=== PATIENT | male | born 1990 | race Caucasian/White ===

== ENCOUNTER 2017-09-22 02:15 | Emergency (ER) | payer SELFPAY ==
[2017-09-22 02:19] VITALS: BP 134/68; PULSE 77; RESP 18; TEMP 98.6; O2SAT 97
[2017-09-22] MEDS ORDERED: SODIUM CHLOR 0.9% 1000 ML INJ 1,000 ML IV SCH (02:27)
--- NOTE | 2017-09-22 02:29 | PD ---
HPI Chief Complaint: Abdominal Pain Time Seen by Provider: 02:23 Travel History International Travel<30 days: No Contact w/Intl Traveler<30days: No Traveled to known affect area: No History of Present Illness HPI Patient comes in complaining of left flank pain radiates towards left lower quadrant area. Describes the pain as sharp, 8 out of 10, woke him up from sleep , not affiliated with any nausea vomiting or diarrhea, states that he is urine has changed and gotten darker and decreased in amount. Patient denies any alleviating or aggravating factors. Patient denies any associated factors such as fever, rash, headache, neck pain, back pain, chest pain, cough/runny nose/ sore throat/..... Patient states that he has allergy to cefaclor, he develops hives Patient denies any past medical history except for depression for which she is on Zoloft and Abilify Patient denies any significant surgical history PFSH Past Medical History ADHD: Yes Diminished Hearing: No Immunizations Current: Yes Past Surgical History Surgical History: No Previous Surgery Social History Alcohol Use: No Tobacco Use: Yes Substance Use: Yes (WEED) Allergies-Medications (Allergen,Severity, Reaction): Coded Allergies: cefaclor (Verified Allergy, Severe, 09/22/17) Reported Meds & Prescriptions Reported Meds & Active Scripts Active Reported Zoloft (Sertraline HCl) 25 Mg Tab 25 Mg PO DAILY Abilify (Aripiprazole) 2 Mg Tab 2 Mg PO DAILY Physical Exam Narrative GENERAL: SKIN: Warm and dry. HEAD: Atraumatic. Normocephalic. EYES: Pupils equal and round. No scleral icterus. No injection or drainage. ENT: No nasal bleeding or discharge. Mucous membranes pink and moist. NECK: Trachea midline. No JVD. CARDIOVASCULAR: Regular rate and rhythm. RESPIRATORY: No accessory muscle use. Clear to auscultation. Breath sounds equal bilaterally. GASTROINTESTINAL: Abdomen soft, non-tender, nondistended. MUSCULOSKELETAL: Extremities without clubbing, cyanosis, or edema. No obvious deformities. NEUROLOGICAL: Awake and alert. No obvious cranial nerve deficits. Motor grossly within normal limits. Five out of 5 muscle strength in the arms and legs. Normal speech. PSYCHIATRIC: Appropriate mood and affect; insight and judgment normal. Data Data Last Documented VS Orders Orders Complete Blood Count With Diff (09/22/17 02:27) Comprehensive Metabolic Panel (09/22/17 02:27) Lipase (09/22/17 02:27) Ct Abd/Pel W/O Iv Contrast (09/22/17 02:27) Iv Access Insert/Monitor (09/22/17 02:27) Ecg Monitoring (09/22/17 02:27) Oximetry (09/22/17 02:27) NPO (09/22/17 02:27) Sodium Chlor 0.9% 1000 Ml Inj (Ns 1000 M (09/22/17 02:27) Sodium Chloride 0.9% Flush (Ns Flush) (09/22/17 02:30) Ketorolac Inj (Toradol Inj) (09/22/17 02:30) Thyroid Stimulating Hormone (09/22/17 02:47) Psych Screen (09/22/17 02:47) Alcohol (Ethanol) (09/22/17 02:47) Salicylates (Aspirin) (09/22/17 02:47) Tylenol (Acetaminophen) (09/22/17 02:47) Ed Discharge Order (09/22/17 10:29) Labs Laboratory Tests Test 09/22/17 02:35 White Blood Count 9.7 TH/MM3 Red Blood Count 4.40 MIL/MM3 Hemoglobin 13.6 GM/DL Hematocrit 39.3 % Mean Corpuscular Volume 89.2 FL Mean Corpuscular Hemoglobin 30.9 PG Mean Corpuscular Hemoglobin Concent 34.6 % Red Cell Distribution Width 13.5 % Platelet Count 280 TH/MM3 Mean Platelet Volume 8.6 FL Neutrophils (%) (Auto) 62.5 % Lymphocytes (%) (Auto) 24.8 % Monocytes (%) (Auto) 8.1 % Eosinophils (%) (Auto) 3.8 % Basophils (%) (Auto) 0.8 % Neutrophils # (Auto) 6.1 TH/MM3 Lymphocytes # (Auto) 2.4 TH/MM3 Monocytes # (Auto) 0.8 TH/MM3 Eosinophils # (Auto) 0.4 TH/MM3 Basophils # (Auto) 0.1 TH/MM3 CBC Comment DIFF FINAL Differential Comment Blood Urea Nitrogen 16 MG/DL Creatinine 0.85 MG/DL Random Glucose 87 MG/DL Total Protein 7.3 GM/DL Albumin 4.0 GM/DL Calcium Level 8.2 MG/DL Alkaline Phosphatase 65 U/L Aspartate Amino Transf (AST/SGOT) 15 U/L Alanine Aminotransferase (ALT/SGPT) 25 U/L Total Bilirubin 0.6 MG/DL Sodium Level 143 MEQ/L Potassium Level 4.2 MEQ/L Chloride Level 108 MEQ/L Carbon Dioxide Level 25.7 MEQ/L Anion Gap 9 MEQ/L Estimat Glomerular Filtration Rate 107 ML/MIN Lipase 221 U/L Thyroid Stimulating Hormone 3rd Gen 2.000 uIU/ML Salicylates Level 1.8 MG/DL Acetaminophen Level LESS THAN 2.0 MCG/ML Ethyl Alcohol Level 6 MG/DL MDM Medical Decision Making Medical Screen Exam Complete: Yes Emergency Medical Condition: Yes Medical Record Reviewed: Yes Differential Diagnosis Colitis versus diverticulitis versus kidney stone versus UTI versus pyelonephritis Narrative Course CBC shows no leukocytosis, no anemia, normal platelet count, no left shift CT abdomen and pelvis read by radiologist as no acute abnormality although it was not mentioned originally when I went back to discuss findings and results patient stated that he has been feeling more depressed lately despite the fact that he is already on antidepressants. Is being worse since his partner left, he has been living in a motel the ED and has been more and more depressed although currently he does not have any suicidal or homicidal ideation. The patient did request to see a psychiatrist. Patient has been medically cleared and will be placed on the waiting list to see a psychiatrist as a voluntary Diagnosis Primary Impression: Resolved left flank pain Additional Impression: medically cleared Ty Lopez MD September 22, 2017 02:29
[2017-09-22] MEDS ORDERED: KETOROLAC TROMETHAMINE 30 MG/ML (IVP) VIAL IVP ONE (02:30)
[2017-09-22] MEDS ORDERED: SODIUM CHLORIDE 0.9% FLUSH 10 ML FLUSH IV FLUSH PRN (02:30)
[2017-09-22 02:34] VITALS: BP 136/61; PULSE 60; RESP 16; O2SAT 97
[2017-09-22] MEDS ORDERED: ARIP2 PO (02:37)
[2017-09-22] MEDS ORDERED: ZOLO25TA PO (02:39)
--- NOTE | 2017-09-22 02:49 | RADRPT ---
EXAM DATE: 09/22/2017 2:44 AM EDT AGE/SEX: 27 years / Male INDICATIONS: Left flank pain. CLINICAL DATA: This is the patient's initial encounter. Patient reports that signs and symptoms have been present for 1 day and indicates a pain score of 7/10. MEDICAL/SURGICAL HISTORY: None. None. RADIATION DOSE: 8.36 CTDI (mGy) COMPARISON: No prior [facility] exams available for comparison. TECHNIQUE: Multiple contiguous axial images were obtained through the abdomen. Images were obtained using multiple row detector helical technique. Using dose reduction techniques, radiation dose was ke pt as low as reasonably achievable to obtain optimal diagnostic quality images. FINDINGS: Lower Lungs: The visualized lower lungs are clear. Liver: The liver has a homogeneous density without space-occupying lesion. There is no dilation of th e biliary tree. Spleen: Homogeneous density without enlargement. Pancreas: Unremarkable without mass or calcification. Kidneys: Normal in size and shape. No evidence of mass or hydronephrosis. Adrenal Glands: Unremarkable. Aorta: The aorta and proximal iliac vessels are grossly unremarkable without aneurysmal dilation. Bowel/Mesentery: The bowel loops are grossly unremarkable. The cecum and sigmoid colon have a normal configuration. Normal appendix. Abdominal Wall: Intact. Retroperitoneum: No evidence of adenopathy in the retrocrural, para-aortic, or deep pelvic regions. Bladder: Contours are smooth. Reproductive Organs: No abnormal masses or calcifications seen. Inguinal: The inguinal region is unremarkable without evidence of adenopathy. Bony Structures: Unremarkable. CONCLUSION: No acute abnormality. Electronically signed by: Euegne Roper MD 09/22/2017 2:48 AM EDT
[2017-09-22 02:56] LABS: AUTOMATED NEUTROPHIL # 6.1 TH/MM3 (1.8-7.7); BASOPHIL # 0.1 TH/MM3 (0-0.2); BASOPHIL % 0.8 % (0.0-2.0); EOSINOPHIL # 0.4 TH/MM3 (0-0.4); EOSINOPHIL % 3.8 % (0.0-4.0); HEMATOCRIT 39.3 % (39.0-51.0); HEMOGLOBIN 13.6 GM/DL (13.0-17.0); LYMPH % 24.8 % (9.0-44.0); LYMPHOCYTE # 2.4 TH/MM3 (1.0-4.8); MEAN CELL VOLUME 89.2 FL (80.0-100.0); MEAN CORPUSCULAR HEMOGLOBIN 30.9 PG (27.0-34.0); MEAN CORPUSCULAR HGB CONC 34.6 % (32.0-36.0); MEAN PLATELET VOLUME 8.6 FL (7.0-11.0); MONO % 8.1 % (0.0-8.0); MONOCYTE # 0.8 TH/MM3 (0-0.9); NEUT % 62.5 % (16.0-70.0); PLATELET COUNT 280 TH/MM3 (150-450); RED CELL DISTRIBUTION WIDTH 13.5 % (11.6-17.2); WHITE BLOOD COUNT 9.7 TH/MM3 (4.0-11.0)
[2017-09-22 02:59] VITALS: RESP 16; O2SAT 97
[2017-09-22 03:17] LABS: AST (GOT) 15 U/L (15-37); BICARBONATE 25.7 MEQ/L (21.0-32.0); BLOOD UREA NITROGEN 16 MG/DL (7-18); CALCIUM 8.2 MG/DL (8.5-10.1); CHLORIDE 108 MEQ/L (98-107); CREATININE 0.85 MG/DL (0.60-1.30); GLOMERULAR FILTRATION RATE 107 ML/MIN (>89); GLUCOSE,RANDOM 87 MG/DL (74-106); SODIUM (NA) 143 MEQ/L (136-145)
[2017-09-22 03:19] LABS: ALKALINE PHOSPHATASE 65 U/L (45-117); ALT (GPT) 25 U/L (12-78); TOTAL BILIRUBIN ADULT 0.6 MG/DL (0.2-1.0); TOTAL PROTEIN 7.3 GM/DL (6.4-8.2)
[2017-09-22 03:56] LABS: ACETAMINOPHEN LESS THAN 2.0 MCG/ML (10.0-30.0)
--- NOTE | 2017-09-22 09:24 | PD ---
History of Present Illness Chief Complaint: Abdominal Pain Time Seen by Provider: 09:10 Travel History International Travel<30 Days: No Contact w/Intl Traveler<30days: No Known affected area: No Legal Status Legal Status: Voluntary History of Present Illness: History of Present Illness HPI Patient is a 27-year-old , single male, moved to [place] 2 weeks ago, homeless, unemployed, with reported history of ADHD, who initially arrives to the ED complaining of left flank pain. After patient was evaluated and clear of medical complaints he requested to speak to psychiatry. Patient was monitored in Main ED and asked per nurse's report presented no behavioral concerns. EMR is reviewed. No previous contact with [facility]. Toxicology report is pending. Patient is seen. He is found asleep but awakens easily. He is alert and oriented, calm and cooperative. Patient states that he came to [place] 2 weeks ago to help a female friend who was in a domestic violence relationship. Since then she was evicted and moved into a domestic violence jail in [place] and he became homeless. Earlier in the evening he reports that he began to experience flank pain and came to the Ed for evaluation. He states" I was exhausted from walking all day long and I think from the way I was carrying my bag I was having pain. I also think I was dehydrated." The patient presents no indication that he is experiencing any psychosis, no evidence of manfred. There is no objective clinical signs of depression. The patient does not verbalize any suicidal or homicidal ideation, intent or plan. He is future oriented and has plans on moving to [place] with a friend. In terms of psychiatric history he states he was diagnosed with ADHD and has taken Ritalin in the past. He was evaluated last week at [facility] after he superficially scratched his left wrist, he called his mother in [place] and she recommended he call 911. He was given a prescription for Zoloft and Abilify but never filled such prescription. He has no previous psychiatric hospitalization. No previous history of self-injurious behavior. No history of suicide attempts. . PFSH Past Medical History ADHD: Yes Diminished Hearing: No Immunizations Current: Yes Past Surgical History Surgical History: No Previous Surgery Psychiatric History Psychiatric History Hx Psychiatric Treatment: Diagnosed with ADHD. No history of suicide attempt. No history of self-injurious behavior except for one incident last week. Was evaluated at [facility] and discharged with prescriptions for Zoloft and Abilify which he never filled. History of Inpatient Treatment: No Guns or firearms in home: No Social History Born and raised in [place]. Never . Has 2 children ages 9 years and 7 years. 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 Came to [place] to help a friend. He is currently homeless. Hx Alcohol Use: Yes Hx Tobacco Use: Yes Hx Substance Use: Yes (WEED) Substance Use Type: Alcohol, Marijuana Hx of Substance Use Treatment: No Family Psychiatric History Negative Allergies-Medications (Allergen,Severity, Reaction): Coded Allergies: cefaclor (Verified Allergy, Severe, 09/22/17) Reported Meds & Prescriptions Reported Meds & Active Scripts Active Reported Zoloft (Sertraline HCl) 25 Mg Tab 25 Mg PO DAILY Abilify (Aripiprazole) 2 Mg Tab 2 Mg PO DAILY Review of Systems Psychiatric: DENIES: Anxiety, Confusion, Mood changes, Depression, Hallucinations, Agitation, Suicidal Ideation, Homicidal Ideation, Delusions Except as stated in HPI: all other systems reviewed are Neg Mental Status Examination Appearance: Disheveled Consciousness: Alert Orientation: x4 Motor Activity: Normal gait Speech: Unremarkable Language: Adequate Fund of Knowledge: Adequate Attention and Concentration: Adequate Memory: Unremarkable Mood: Appropriate Affect: Appropriate Thought Process & Associations: Intact, Logical, Goal directed Thought Content: Appropriate Hallucination Type: None Delusion Type: None Suicidal Ideation: No Suicidal Plan: No Suicidal Intention: No Homicidal Ideation: No Homicidal Plan: No Homicidal Intention: No Insight: Fair Judgment: Adequate [facility] Medical Decision Making Medical Record Reviewed: Yes Assessment/Plan Patient is a 27-year-old , single male, moved to [place] 2 weeks ago, homeless, unemployed, with reported history of ADHD, who initially arrives to the ED complaining of left flank pain. After patient was evaluated and clear of medical complaints he requested to speak to psychiatry. Patient was monitored in Main ED and asked per nurse's report presented no behavioral concerns. The patient presents with no psychosis, no manfred, no hypomania. No suicidal or homicidal ideation, intent or plan. No significant clinical symptoms of depression or anxiety are noted. He denies that he has a diagnosis of depression and that he has never taken the medication that were prescribed to him last week at [facility]. The patient basically came into the hospital because he had been walking around all day and felt he was dehydrated and he was tired. The patient does not present evidence of unstable mental illness. No criteria for inpatient psychiatric treatment. He is future oriented and has plans on moving to [place] with a friend of his. Psychiatrically clear for discharge. Orders Orders Complete Blood Count With Diff (09/22/17 02:27) Comprehensive Metabolic Panel (09/22/17:) Lipase (09/22/17:) Urinalysis - C+S If Indicated (09/22/17) Ct Abd/Pel W/O Iv Contrast (09/22/17:27) Iv Access Insert/Monitor (09/22/17:27) Ecg Monitoring (09/22/17:) Oximetry (09/22/17:) NPO (09/22/17:27) Sodium Chlor 0.9% 1000 Ml Inj (Ns 1000 M (09/22/17 02:27) Sodium Chloride 0.9% Flush (Ns Flush) (09/22/17 02:30) Ketorolac Inj (Toradol Inj) (09/22/17 02:30) Thyroid Stimulating Hormone (09/22/17 02:47) Psych Screen (09/22/17 02:47) Drug Screen, Random Urine (09/22/17 02:47) Alcohol (Ethanol) (09/22/17 02:47) Salicylates (Aspirin) (09/22/17 02:47) Tylenol (Acetaminophen) (09/22/17 02:47) Results Vital Signs Date Time Temp Pulse Resp B/P (MAP) Pulse Ox O2 Delivery O2 Flow Rate FiO2 09/22/17 02:59 16 97 Room Air 09/22/17 02:34 60 16 136/61 (86) 97 Room Air 09/22/17 02:19 98.6 77 18 134/68 (90) 97 Laboratory Tests Test 09/22/17 02:35 White Blood Count 9.7 Red Blood Count 4.40 Hemoglobin 13.6 Hematocrit 39.3 Mean Corpuscular Volume 89.2 Mean Corpuscular Hemoglobin 30.9 Mean Corpuscular Hemoglobin Concent 34.6 Red Cell Distribution Width 13.5 Platelet Count 280 Mean Platelet Volume 8.6 Neutrophils (%) (Auto) 62.5 Lymphocytes (%) (Auto) 24.8 Monocytes (%) (Auto) 8.1 Eosinophils (%) (Auto) 3.8 Basophils (%) (Auto) 0.8 Neutrophils # (Auto) 6.1 Lymphocytes # (Auto) 2.4 Monocytes # (Auto) 0.8 Eosinophils # (Auto) 0.4 Basophils # (Auto) 0.1 CBC Comment DIFF FINAL Differential Comment Blood Urea Nitrogen 16 Creatinine 0.85 Random Glucose 87 Total Protein 7.3 Albumin 4.0 Calcium Level 8.2 Alkaline Phosphatase 65 Aspartate Amino Transf (AST/SGOT) 15 Alanine Aminotransferase (ALT/SGPT) 25 Total Bilirubin 0.6 Sodium Level 143 Potassium Level 4.2 Chloride Level 108 Carbon Dioxide Level 25.7 Anion Gap 9 Estimat Glomerular Filtration Rate 107 Lipase 221 Thyroid Stimulating Hormone 3rd Gen 2.000 Salicylates Level 1.8 Acetaminophen Level LESS THAN 2.0 Ethyl Alcohol Level 6 Diagnosis Primary Impression: Resolved left flank pain Additional Impression: Adjustment disorder Psychiatrically Cleared: Yes Med/ Other Pt Specific Info: No Meds Exist/No RX given Disposition: 01 DISCHARGE HOME Condition: Stable Problem Qualifiers Additional Impression: Adjustment disorder Qualified Codes: F43.20 - Adjustment disorder, unspecified Bhargavi Putnam [facility] September 22, 2017 09:24
--- NOTE | 2017-09-22 10:29 | PD ---
Physical Exam Narrative This is a 27yo M who was seen by previous provider Dr. Lopez for left flank pain. Pt was medically clear and was requesting to be evaluated by psychiatry. Pt was evaluated by psych nurse and psychiatrically clear for discharge. Data Data Last Documented VS Vital Signs Date Time Temp Pulse Resp B/P (MAP) Pulse Ox O2 Delivery O2 Flow Rate FiO2 09/22/17 10:50 09/22/17 02:59 16 97 Room Air 09/22/17 02:34 60 09/22/17 02:19 98.6 Orders Orders Complete Blood Count With Diff (09/22/17 02:27) Comprehensive Metabolic Panel (09/22/17 02:27) Lipase (09/22/17 02:27) Ct Abd/Pel W/O Iv Contrast (09/22/17 02:27) Iv Access Insert/Monitor (09/22/17 02:27) Ecg Monitoring (09/22/17 02:27) Oximetry (09/22/17 02:27) NPO (09/22/17 02:27) Sodium Chlor 0.9% 1000 Ml Inj (Ns 1000 M (09/22/17 02:27) Sodium Chloride 0.9% Flush (Ns Flush) (09/22/17 02:30) Ketorolac Inj (Toradol Inj) (09/22/17 02:30) Thyroid Stimulating Hormone (09/22/17 02:47) Psych Screen (09/22/17 02:47) Alcohol (Ethanol) (09/22/17 02:47) Salicylates (Aspirin) (09/22/17 02:47) Tylenol (Acetaminophen) (09/22/17 02:47) Ed Discharge Order (09/22/17 10:29) Labs Laboratory Tests Test 09/22/17 02:35 White Blood Count 9.7 TH/MM3 Red Blood Count 4.40 MIL/MM3 Hemoglobin 13.6 GM/DL Hematocrit 39.3 % Mean Corpuscular Volume 89.2 FL Mean Corpuscular Hemoglobin 30.9 PG Mean Corpuscular Hemoglobin Concent 34.6 % Red Cell Distribution Width 13.5 % Platelet Count 280 TH/MM3 Mean Platelet Volume 8.6 FL Neutrophils (%) (Auto) 62.5 % Lymphocytes (%) (Auto) 24.8 % Monocytes (%) (Auto) 8.1 % Eosinophils (%) (Auto) 3.8 % Basophils (%) (Auto) 0.8 % Neutrophils # (Auto) 6.1 TH/MM3 Lymphocytes # (Auto) 2.4 TH/MM3 Monocytes # (Auto) 0.8 TH/MM3 Eosinophils # (Auto) 0.4 TH/MM3 Basophils # (Auto) 0.1 TH/MM3 CBC Comment DIFF FINAL Differential Comment Blood Urea Nitrogen 16 MG/DL Creatinine 0.85 MG/DL Random Glucose 87 MG/DL Total Protein 7.3 GM/DL Albumin 4.0 GM/DL Calcium Level 8.2 MG/DL Alkaline Phosphatase 65 U/L Aspartate Amino Transf (AST/SGOT) 15 U/L Alanine Aminotransferase (ALT/SGPT) 25 U/L Total Bilirubin 0.6 MG/DL Sodium Level 143 MEQ/L Potassium Level 4.2 MEQ/L Chloride Level 108 MEQ/L Carbon Dioxide Level 25.7 MEQ/L Anion Gap 9 MEQ/L Estimat Glomerular Filtration Rate 107 ML/MIN Lipase 221 U/L Thyroid Stimulating Hormone 3rd Gen 2.000 uIU/ML Salicylates Level 1.8 MG/DL Acetaminophen Level LESS THAN 2.0 MCG/ML Ethyl Alcohol Level 6 MG/DL MDM Supervised Visit with [facility]: No Diagnosis Primary Impression: Resolved left flank pain Additional Impression: Adjustment disorder Qualified Codes: F43.20 - Adjustment disorder, unspecified Patient Instructions: General Instructions Departure Forms: Tests/Procedures Additional Instruction: Please follow up with your primary care physician and psychiatrist as outpatient. Return to the ED if symptoms worsen. Med/Other Pt SpecificInfo: No Change to Meds Disposition: 01 DISCHARGE HOME Condition: Stable Magda Agarwal DO September 22, 2017 10:29
== END 2017-09-22 10:50 | disposition home or self-care (01) ==
LOC: NEPC 02:15
DX: F43.20 Adjustment disorder, unspecified (principal); F90.9 Attention-deficit hyperactivity disorder, unspecified type; Z79.899 Other long term (current) drug therapy
CPT/HCPCS: 74176; 80053; 80307; 83690; 84443; 85025; 96361; 96374; 99284; J1885; J7030